=== PATIENT | female | born 2000 | race Caucasian/White ===

== ENCOUNTER 2020-03-23 11:08 | Outpatient (CLI) | payer BC, SELFPAY ==
--- NOTE | ~2020-03-23 | US_ITS ---
EXAMINATION: US breast LT complete HISTORY: Mastodynia TECHNIQUE: Complete left breast ultrasound is performed. FINDINGS: There is no suspicious cystic or solid mass in the vicinity of the reported palpable abnorm ality of concern. A 3 mm cyst in the skin at the 2:00 location near the nipple, likely a sebaceous cy st. IMPRESSION: No specific sonographic correlate is identified for the reported palpable abnormality of concern. Fur ther evaluation at this time should be based on clinical assessment. Continued follow-up physical exa mination is recommended. BI-RADS Category 2: Benign finding(s). Reviewed, dictated and finalized at location A. IMPRESSION: No specific sonographic correlate is identified for the reported palpable abnor mality of concern. Further evaluation at this time should be based on clinical assessment. Continued follow-up physical examination is recommended. BI-RADS Category 2: Benign finding(s).
== END 2020-03-23 11:09 | disposition home or self-care (01) ==
PROVIDERS: Visit Provider Nurse Practitioner
DX: O92.29 Other disorders of breast associated with pregnancy and the puerperium (principal)
CPT/HCPCS: 76641

== ENCOUNTER 2023-05-05 12:28 | Emergency (ER) | payer BC, SELFPAY ==
[2023-05-05 12:54] VITALS: BP 129/73; PULSE 75; RESP 18; TEMP 37.1; O2SAT 99
--- NOTE | 2023-05-05 13:15 | ED.EYEPROB ---
HPI - Eye Problem General Chief complaint: Eye Problems Stated complaint: Left Eye Irritation Time Seen by Provider: 05/05/23 13:00 Source: patient Mode of arrival: ambulatory Limitations: no limitations History of Present Illness HPI Narrative: Drea is a 22-year-old female patient presenting to clinic today with complaints of left eye discomfort/irritation since this morning. She reports that she was trying to pull a eye lash with a tweezer and accidentally poked herself in the eye. She reports that the eye has been painful and watering ever since and she has been rubbing it. Related Data Allergies Allergy/AdvReac Type Severity Reaction Status Date / Time Penicillins Allergy Unknown Unknown Unverified 05/05/23 13:08 Review of Systems Review of Systems: Pertinent positives per HPI. Patient denies any fever, chills, rash, headache, visual changes, dizziness, cough, runny nose, sore throat, shortness of breath, chest pain, palpitations, nausea, vomiting, diarrhea, constipation, abdominal pain, or any urinary issues. PMFSH Comments At the time of my signature, I reviewed and agree with the nursing past medical, surgical, social, and family history. There is no relevant family history pertinent to the patient complaint. Exam Narrative: General: Well-developed, well nourished, in no apparent distress Head: Normocephalic, atraumatic Eyes: Pupils equally round and reactive to light bilaterally, EOM intact, right sclera and conjunctive clear, mild irritation to the left sclera, watery discharge to the left eye with mild lid swelling, Wood's lamp exam was performed and shows no obvious corneal abrasion. No obvious foreign body visualized Ears: TMs intact and clear, ear canals clear, no drainage, grossly hearing normal. Nose: Nares patent, no discharge, no inflammation, no sinus tenderness. Mouth: Oropharynx without lesions or masses, good dentition, MMM. Neck: Supple, trachea midline, no enlargement of anterior or posterior cervical nodes, no thyroid masses or goiter palpable. Cardio: Regular rate and rhythm, s1 and s2 normal, no murmur appreciated. Resp: Clear to auscultation bilaterally anteriorly and posteriorly, no rhonchi, rales, wheezing or rubs Course Course Emergency Course: Portions of this record may have been created with voice recognition software. Level of Care: Express Care Visit Vital Signs Vital signs: Vital Signs Temperature 37.1 C 05/05/23 12:54 Pulse Rate 75 05/05/23 12:54 Respiratory Rate 18 05/05/23 12:54 Blood Pressure 129/73 05/05/23 12:54 Pulse Oximetry 99 05/05/23 12:54 Oxygen Delivery Room Air 05/05/23 12:54 Temperature 37.1 C 05/05/23 12:54 Pulse Rate 75 05/05/23 12:54 Respiratory Rate 18 05/05/23 12:54 Blood Pressure 129/73 05/05/23 12:54 Pulse Oximetry 99 05/05/23 12:54 Oxygen Delivery Room Air 05/05/23 12:54 Vital signs reviewed Procedures Other Procedure Procedure 1: Other Procedure: Topical anesthetic -2 drops of tetracaine was instilled with good anesthesia. Fluorescein stain of the left eye was performed without uptake of dye. No epithelial defect was noted. NO FB, ulcer or dendritic lesions. Upper lid was everted and no FB or lesions were noted. NO Jonny sign. Normal saline irrigation eye solution was performed and the patient tolerated the procedure well, no adverse reaction or complications. Visual acuity noted. MDM - Eye Problem MDM Narrative Medical decision making narrative: At the time of visit patient is resting comfortably on the exam table. Wood's lamp exam was performed and does not show any sign of corneal abrasion. No foreign body was visualized in the left eye. Eye wash was completed and tetracaine was placed into the left eye and this improved her pain. Patient is not wearing corrective lenses in the clinic today and states that she is legally blind without. Will send in prescription for some Tobr
--- NOTE | 2023-05-05 13:23 | PC.NURSE ---
1315 attempted visual acuity , pt states uses contacts and /or glasses. does not have either with her. very poor vision without.
--- NOTE | 2023-05-05 13:25 | PC.NURSE ---
documentation completed by nancy zepeda rn and reviewed
== END 2023-05-05 13:30 | disposition home or self-care (01) ==
PROVIDERS: Emergency Provider Nurse Practitioner Family
DX: H57.12 Ocular pain, left eye (principal)
CPT/HCPCS: 99213; A9270; G0463

== ENCOUNTER 2023-09-03 11:54 | Emergency (ER) | payer BC, SELFPAY ==
[2023-09-03 12:15] VITALS: BP 116/71; PULSE 68; RESP 16; TEMP 36.8; O2SAT 100
--- NOTE | 2023-09-03 12:49 | ED.URI ---
HPI - URI/Sore Throat General Chief Complaint: Upper Respiratory Infection Stated Complaint: Cough/Sinus Time Seen by Provider: 09/03/23 12:49 Source: patient Mode of arrival: ambulatory Limitations: no limitations History of Present Illness HPI Narrative: 23-year-old female presents with complaint of cough, sinus congestion, nasal congestion, headaches for the past 2 weeks. Afebrile. Reports taking xdhr-oed-hwcuuyd medication to treat symptoms but unsure of name. States symptoms getting progressively worse now has sore throat, worsening of sinus pressure. All systems reviewed and negative except as noted above. Related Data Allergies Allergy/AdvReac Type Severity Reaction Status Date / Time Penicillins Allergy Unknown Unknown Unverified 05/05/23 13:08 Review of Systems Review of Systems: CONSTITUTIONAL: Denies fever, chills, or sweats. EYES: Denies visual changes, redness, or discharge. ENT: reports rhinorrhea, congestion, sore throat. Denies otalgia. CARDIOVASCULAR: Denies chest pain, palpitations, or edema. RESPIRATORY: Reports cough. Denies dyspnea. GASTROINTESTINAL: Denies abdominal pain, nausea, vomiting, or diarrhea. GENITOURINARY: Denies dysuria or hematuria. SKIN: Denies rash or itching. MUSCULOSKELETAL: Denies back pain, joint pain, or myalgia. NEUROLOGIC: Denies headache, numbness, or weakness. PSYCHIATRIC: Denies anxiety or depression. All other systems reviewed are negative, except as documented in HPI. PMFSH Comments At time of signature, agree with nursing past medical, surgical, social and family history. There is no relevant family history pertinent to the presenting complaint. Exam Narrative: GENERAL: This is a well-nourished, well-developed patient, in no apparent distress. HEAD: normocephalic, atraumatic. EYES: PERRL. Sclera clear/white. Vision is grossly intact. EARS: External ears normal, auditory canals clear and without drainage, fluid bilateral TMs without erythema or perforation. Hearing grossly intact. NOSE: External nose normal with purulence nasal drainage, moderate congestion. Bilateral frontal and maxillary sinus tenderness on palpation. Erythema and swelling to bilateral nares. THROAT: Mucous membranes moist, Postnasal drainage with erythema NECK: Neck supple, non-tender without lymphadenopathy, masses or thyromegaly. CARDIOVASCULAR: Regular rate and rhythm without murmurs, gallops, or rubs. RESPIRATORY: Clear to auscultation. Breath sounds equal bilaterally. No wheezes, rales, or rhonchi. SKIN: warm, Dry, intact with no suspicious lesions or rash, good texture and turgor. NEURO: awake, alert, and oriented to person, place and time. There were no obvious focal neurologic abnormalities. EXTREMITIES: No joint tenderness, effusion, or edema noted. Course Course Level of Care: Express Care Visit Vital Signs Vital signs: Vital Signs Temperature 36.8 C 09/03/23 12:15 Pulse Rate 68 09/03/23 12:15 Respiratory Rate 16 09/03/23 12:15 Blood Pressure 116/71 09/03/23 12:15 Pulse Oximetry 100 09/03/23 12:15 Oxygen Delivery Room Air 09/03/23 12:15 Temperature 36.8 C 09/03/23 12:15 Pulse Rate 68 09/03/23 12:15 Respiratory Rate 16 09/03/23 12:15 Blood Pressure 116/71 09/03/23 12:15 Pulse Oximetry 100 09/03/23 12:15 Oxygen Delivery Room Air 09/03/23 12:15 Reviewed MDM - URI/Sore Throat MDM Narrative Medical decision making narrative: Patient is aware of diagnosis, understands and agrees to treatment plan. Anticipatory guidance given. Patient agrees to follow-up as directed and is aware of reasons to seek care at the emergency department. Portions of this record may have been created with voice recognition software will treat patient with antibiotics for bacterial sinusitis due to duration of symptoms And exam findings. Differential Diagnosis Differential diagnosis: Likely sinusitis Discharge Plan Discharge
== END 2023-09-03 13:03 | disposition home or self-care (01) ==
PROVIDERS: Emergency Provider Nurse Practitioner Family; PCP Internal Medicine
DX: J01.90 Acute sinusitis, unspecified (principal); B96.89 Other specified bacterial agents as the cause of diseases classified elsewhere
CPT/HCPCS: 99213; G0463

== ENCOUNTER 2023-10-09 14:10 | Outpatient (CLI) | payer OTHER, SELFPAY ==
--- NOTE | ~2023-10-09 | US_ITS ---
EXAMINATION: US art doppler w press LE BI DATE: 10/09/2023 15:14 INDICATION: Peripheral vascular disease TECHNIQUE: Segmental pressures and plethysmographic and Doppler waveforms of the brachial and lower e xtremity arteries were obtained. COMPARISON: None. FINDINGS: Right and left brachial artery pressures of 106 mm Hg and 113 mm Hg, respectively, are concordant (no rmal difference <= 30 mmHg). The right and left high-thigh pressure indices are 1.18 and 1.18, respec tively (normal > 1.2). The right ankle-brachial index (CHEPE) is 1.12 (normal >= 0.9-1). The right great toe-brachial index (T BI) is 0.76 (normal >= 0.6-0.8). The right lower extremity segmental pressure gradients are normal (n ormal gradients <= 20-30 mmHg between adjacent levels on the same leg or the same levels on the two l egs). Arterial waveforms are biphasic with brisk systolic upstrokes throughout the arteries of the ri ght lower limb. The left CHEPE is 1.06. The left TBI is 0.61. The left lower extremity segmental pressure gradients are normal. Arterial waveforms are triphasic at the left common femoral and superficial femoral arteries and biphasic in the more distal arteries with brisk systolic upstrokes throughout. IMPRESSION: 1. Mild aortobiiliac arterial occlusive disease with mildly decreased bilateral high thigh pressure i ndices. 2. No significant more peripheral arterial occlusive disease to bilateral lower limbs with normal neto ateral ABIs and right TBI and borderline left TBI. Reviewed, dictated and finalized at location A. [facility] [employer] IMPRESSION: 1. Mild aortobiiliac arterial occlusive disease with mildly decreased bilateral high thigh pressure indices. 2. No significant more peripheral arterial occlusive disease to bilateral lower limbs with normal bilateral ABIs and right TBI and borderline left TBI.
== END 2023-10-09 14:11 | disposition home or self-care (01) ==
PROVIDERS: Visit Provider Podiatrist Foot & Ankle Surgery
DX: I73.9 Peripheral vascular disease, unspecified (principal)
CPT/HCPCS: 93923

== ENCOUNTER 2024-10-18 07:31 | Outpatient (CLI) | payer OTHER, SELFPAY ==
--- NOTE | ~2024-10-18 | US_ITS ---
EXAMINATION: US OB transvaginal INDICATION: UNCERTIAN DATES TECHNIQUE: Sonography of the pelvis was performed by transabdominal and transvaginal techniques. COMPARISON: None. RESULT: Uterus: 8.7 x 5.1 x 7.3 cm. Anteverted. Homogenous myometrium. Intrauterine gestational sac: Single present. Yolk sac: 0.5 cm . Embryo: Single present. Frannie rump length: 0.5 cm, corresponding gestational age 6 weeks, 2 days. G estational heart rate: present 114 bpm. Subgestational hematoma: Absent . Right ovary: Not visualized. Left ovary: Not visualized. Pelvis free fluid: None. IMPRESSION: Single, live intrauterine gestation. Estimated Gestational Age: 6 weeks, 2 days by crown rump length. LICO by ultrasound 06/11/2025. Reviewed, dictated and finalized at location K. ELECTRICIAN IMPRESSION: Single, live intrauterine gestation. Estimated Gestational Age: 6 weeks, 2 days by crown rump length. LICO by ultras ound 06/11/2025.
== END 2024-10-18 07:32 | disposition home or self-care (01) ==
LOC: MICIMG 07:32
PROVIDERS: Visit Provider Obstetrics & Gynecology Gynecology
DX: Z36.87 Encounter for antenatal screening for uncertain dates (principal); Z3A.01 Less than 8 weeks gestation of pregnancy
CPT/HCPCS: 76817

== ENCOUNTER 2024-10-28 10:25 | Outpatient (CLI) | payer OTHER, SELFPAY ==
--- NOTE | ~2024-10-28 | US_ITS ---
Pelvic ultrasound. Clinical History: First trimester , vaginal bleeding Technique: Realtime transabdominal and transvaginal scanning of the pelvis was performed. Color flow Doppler and Doppler spectral analysis were performed. Findings: The uterus is anteverted, and contains an intrauterine gestation. Small subchorionic hemorr crystal measures 1.3 cm in maximum diameter. Brimson-rump length of 1.4 cm corresponds to an estimated ges tational age of 7 weeks 5 days. heart rate is 155 bpm. Neither ovary seen. No adnexal mass seen. There is no evidence of free fluid in the cul de sac. Impression: Live intrauterine gestation, with estimated gestational age of 7 weeks 5 days. heart rate is 15 5 bpm. Sonographic LICO is 06/11/2025. Small subchorionic hemorrhage, as above. Reviewed, dictated and finalized at [facility]. UTER FORWARDING SYSTEM MARKUP CLERK Impression: Live intrauterine gestation, with estimated gestational age of 7 weeks 5 days. heart rate is 155 bpm. Sonographic LICO is 06/11/2025. Small subchorionic hemorrhage, as above.
== END 2024-10-28 10:26 | disposition home or self-care (01) ==
LOC: MICIMG 10:26
PROVIDERS: PCP Obstetrics & Gynecology Gynecology; Visit Provider Obstetrics & Gynecology Gynecology
DX: O26.851 Spotting complicating pregnancy, first trimester (principal); Z3A.01 Less than 8 weeks gestation of pregnancy
CPT/HCPCS: 76801

== ENCOUNTER 2024-11-25 09:50 | Outpatient (CLI) | payer OTHER, SELFPAY ==
--- NOTE | ~2024-11-25 | US_ITS ---
EXAMINATION: US OB <= 14 weeks fetus DATE: 11/25/2024 14:22 CDT INDICATION: Follow-up subchorionic hemorrhage COMPARISON: 10/28/2024 TECHNIQUE: Real-time transabdominal obstetric ultrasound. FINDINGS: 2 Estimated date of delivery by last menstrual period is 06/11/2025 The uterus 14.5 x 8.3 x 8.2 cm. A gestational sac is identified within the uterus. Interval resolution of the subchorionic hemorrhage, seen on previous examination. A pole is identified, with a crown-rump length that measures 5.3 cm, corresponding to an approx imate gestational age of 12 weeks and 0 days. cardiac activity is identified at a rate of 161 bpm. Despite prolonged interrogation, neither ovary was visualized. Estimated date of delivery by ultrasound is 06/09/2025 IMPRESSION: Single intrauterine gestation with an approximate gestational age of 12 weeks and 0 days, with cardiac activity identified. No subchorionic hemorrhage is present. Reviewed, dictated and finalized at location A. IMPRESSION: Single intrauterine gestation with an approximate gestational age of 12 weeks a nd 0 days, with cardiac activity identified. No subchorionic hemorrhage is present.
== END 2024-11-25 09:51 | disposition home or self-care (01) ==
PROVIDERS: PCP Obstetrics & Gynecology Gynecology; Visit Provider Nurse Practitioner Women's Health
DX: O36.8910 Maternal care for other specified fetal problems, first trimester, not applicable or unspecified (principal); Z3A.12 12 weeks gestation of pregnancy
CPT/HCPCS: 76801

== ENCOUNTER 2025-01-14 15:21 | Outpatient (CLI) | payer OTHER, SELFPAY ==
--- NOTE | ~2025-01-14 | US_ITS ---
EXAMINATION: US OB /maternal detail DATE: 01/16/2025 15:53 CDT INDICATION: Anatomy scan TECHNIQUE: Real-time transabdominal obstetric ultrasound. FINDINGS: There is a single intrauterine gestation in variable presentation. The placenta is anterior and demonstrates complete placenta previa. The cervix measures 4.8 cm in length. cardiac activity and movement is noted with a heart rate of 143 beats per minute. Anatomic parameters are as follows The bladder is visualized and is unremarkable. A three-vessel cord is present. Cord insertion is clearly demonstrated to be on the midline. Bilateral kidneys are present without hydronephrosis. The anterior and posterior margins of the diaphragm are continuous. The cervical, thoracic and lumbar spines are covered in their entirety. choroid plexi are visualized, and unremarkable. Lateral ventricles are visualized measuring 6.7 and 6.8 mm, respectively. The falx is visualized. The cerebellum is visualized and is unremarkable. The cisterna magna measures 5.8 mm in anterior to posterior dimension (normal measurement is 2 to 10 mm). The nuchal fold measures 3.5 mm (greater than 6 mm is considered abnormal). Cine of the four-chamber heart is visualized and is anatomic. Both the right and left ventricular outflow tracts are identified and are unremarkable. Limited views of the arms, hands, legs and feet were performed and appear grossly unremarkable. Evaluation of the upper lip and nose confirms their continuity. The following biometric data were obtained: Biparietal diameter (BPD): 4.5 cm; head circumference (HC): 16.7 cm; abdominal circumference (AC): 13.7 cm; femur length (FL): 3 cm. These measurements are concordant. Estimated weight is 280 g +/- 42 g, which correlates with the 67th percentile when 06/08/2025 is used as estimated date of delivery. As single measurements, these parameters are each equal to the following estimated gestational ages: BPD: 19 weeks 3 days. HC: 19 weeks 3 days. AC: 19 weeks 1 day. FL: 19 weeks 2 days. estimated gestational age based solely on measurements from this exam is 19 weeks 2 days +/- 1 week 2 days. IMPRESSION: Single intrauterine gestation with an approximate gestational age of 19 weeks and 2 days. Estimated d ue date by ultrasound is 06/08/2025 Complete placenta previa. Reviewed, dictated and finalized at location A. IMPRESSION: Single intrauterine gestation with an approximate gestational age of 19 weeks a nd 2 days. Estimated due date by ultrasound is 06/08/2025 Complete placenta previa.
== END 2025-01-14 15:22 | disposition home or self-care (01) ==
PROVIDERS: PCP Obstetrics & Gynecology Gynecology; Visit Provider Obstetrics & Gynecology Gynecology
DX: Z34.92 Encounter for supervision of normal pregnancy, unspecified, second trimester (principal); Z3A.19 19 weeks gestation of pregnancy
CPT/HCPCS: 76805

== ENCOUNTER 2025-02-24 10:50 | Outpatient (CLI) | payer OTHER, SELFPAY ==
--- NOTE | ~2025-02-24 | US_ITS ---
US OB limited 02/24/2025 11:10 Indication: Follow-up previa Procedure: High-resolution Limited obstetrical ultrasound Comparison: Ultrasound dated 01/14/2025 Findings: There is a single living intrauterine in vertex presentation. heart rate 14 2 BPM. Placenta anterior measuring 3.9 cm to the cervix. Amniotic fluid is subjectively normal. Impression: 1: Low-lying anterior placenta measuring 3.9 cm to the cervix. Reviewed, dictated and finalized at location [] Impression: 1: Low-lying anterior placenta measuring 3.9 cm to the cervix.
== END 2025-02-24 10:51 | disposition home or self-care (01) ==
LOC: MICIMG 10:51
PROVIDERS: PCP Obstetrics & Gynecology Gynecology; Visit Provider Obstetrics & Gynecology Gynecology
DX: O44.00 Complete placenta previa NOS or without hemorrhage, unspecified trimester (principal); Z3A.00 Weeks of gestation of pregnancy not specified
CPT/HCPCS: 76815

== ENCOUNTER 2025-04-29 22:10 | Outpatient (RCR) | payer OTHER, SELFPAY ==
[2025-04-29 22:52] VITALS: BP 139/81; PULSE 87
== END 2025-07-28 23:59 | disposition home or self-care (01) ==
LOC: ANHOBOP 22:10
PROVIDERS: PCP Obstetrics & Gynecology Gynecology; Visit Provider Obstetrics & Gynecology Gynecology
DX: O36.8130 Decreased fetal movements, third trimester, not applicable or unspecified (principal); Z3A.34 34 weeks gestation of pregnancy
CPT/HCPCS: 59025

== ENCOUNTER 2025-05-19 16:37 | Outpatient (CLI) | payer OTHER, SELFPAY ==
--- OUTSIDE RECORDS SUMMARY | 2015-08-18 05:15 | XMS_ITS | Continuity of Care Document ---
Author Organization [facility] Address [address] [place] [address] Phone Care Team Providers Care Chemical Maker Name Role Phone Mirian Avina PA-C Unavailable Unavailable Advance Directives Directive Yes / No Effective Date File Name No Information Encounters Encounter Description Practice Location Reason(s) For Visit Diagnoses Date Provider Providers Copied on Encounter [facility], [address], [place], [address], tel:[phone] [facility] Bursitis of left shoulder 5 Fabrice Vela. [address], [place], [place], [address] . tel:[phone] Referring Provider: [address], [place], [address] . tel:[phone] Family History Family Member Type Diagnosis Age At Onset No Information Payers Payer name Insurance type Covered libertarian ID Authoriza tion(s) No Information Social History Type Description Quantity Date Captured Comments Sex Female Smoking Status No Information Vital Signs Date / Time: Height Weight BMI Pulse Rate Blood Pressure Temperature Respiratory Rate Body Surface Area Head Circumference Head Circ. Percentile Wt./Matt. Percentile BMI percentile Pulse Ox Inhaled Ox 10:21 AM 69.00 in 56.245 kg (124.00 lbs) 18.3 1 kg/m eter (2) 98.10 F Chief Complaint And Reason For Visit No Information Reason For Referral Reason For Referral No Information Plan Of Treatment Date Type Action Status Referral Ordered: RADEX WALTER COMPL MINIMUM 2 VIEWS LT ordered History Of Present Illness Encounter Date Complaint History Of Prese nt Illness No Information Functional Status Date Functional Assessmen t No Information Instructions Date Instruction Additional Infor mation No Information Assessments Type Assessment Date assessment Bursitis of left shoulder Patient Care Teams Name Effective Dates (start - stop) Status Members No Information
--- OUTSIDE RECORDS SUMMARY | 2021-06-27 04:15 | XMS_ITS | Continuity of Care Document ---
Author Organization [facility] Address [address] [place] [address] Phone Care Team Providers Care Metal Roofer Name Role Phone Leon Hong MD Unavailable Unavailable Allergies, Adverse Reactions, Alerts Substance Reaction Status Criticality amoxicillin hives Active No Information Medications Medication Instructions Dosage Effective Dates (start - stop) Status Comments Topamax 25 mg tablet TAKE 1 TABLET BY MOUTH EVERY DAY - Active Imitrex 100 mg tablet take 1 tablet by oral route once with fluids as early as possible after the onset of a migraine attack;may repeat after 2 hours - Active Sprintec (28) 0.25 mg-35 mcg tablet 1 tab by Oral route every day - Active 3 month supply Procedures Procedure Date FORM CHARGE BODY MASS INDEX DOCD SYST BP LT 130 MM HG DIAST BP < 80 MM HG IMMUN ADMIN (INC PERCUTANEOUS) SINGLE, F IRST INJ FLU VAC NO PRSV 4 MIKAYLA, 0.5mL DOSAGE PREVENTATIVE-EST: 18-39 FORM CHARGE OFFICE [id number] BODY MASS INDEX DOCD SYST BP LT 130 MM HG DIAST BP < 80 MM HG Advance Directives Directive Yes / No Effective Date File Name No Information Encounters Encounter Description Practice Location Reason(s) For Visit Diagnoses Date Provider Providers Copied on Encounter [facility], [address], [place], [place], [address] , tel: [phone] [facility] No Information [address], [place], [place], [address], [place]. tel:[phone] [facility], [address], [place], [place], [address] , tel: [phone] [facility] No Information [address], [address], [place], [place], [address], [place]. tel:[phone] [facility], [address], [place], [place], [address] , tel: [phone] [facility] No Information 1 Hal [address], [address], [place], [place], [address], [place]. tel:[phone] Referring Provider: [address], [place], [address] . tel:[phone] PREVENTATIVE -EST: 18-39 [facility], [address], [place], [place], [address] , tel: [phone] [facility] well visit (chief complaint) Encounter for general adult medical examination without abnormal findingsMigraine without status migrainosus, not intractable, unspecified migraine typeOral contraceptive use 0 Hal Quintero. [address], [address], [place], [place], [address], [place]. tel:[phone] Referring Provider: [address], [place], [address] . tel:[phone] [facility], [address], [place], [place], [address] , tel: [phone] [facility] No Information 0 Hal Quintero. [address], [address], [place], [place], [address], [place]. tel:[phone] [facility], [address], [place], [place], [address] , tel: [phone] [facility] No Information 0 Hal Quintero. [address], [address], [place], [place], [address], [place]. tel:[phone] Referring Provider: [address], [place], [address] . tel:[phone] OFFICE [facility], [address], [place], [place], [address] , tel: [phone] [facility] acute visit (chief complaint) Migraine without status migrainosus, not intractable, unspecified migraine type 0 Hal Quintero[address], [address], [place], [place], [address], . tel:[phone] Referring Provider: Leon Crowe, [address], [place], [address] . tel:[phone] [facility], [address], [place], [place], [address] , tel:[phone] [facility] Encounter for routine child health examination without abnormal findings 6 Hal [address], [address], [place], [place], [address], [place]. tel:[phone] Referring Provider: [address], [place], [address] . tel:[phone] [facility], [address], [place], [place], [address] , tel:[phone] [facility] No Information 6 [address], [address], [place], [place], [address], . tel:[phone] [facility], [address], [place], [place], [address] , tel: [phone] [facility] Encounter for screening for other disorderDepression , unspecified depression typeEncounter for surveillance of contraceptive pills 6 Hal Qu[address], [address], [place], [place], [address], . tel:[phone] Referring Provider: Leon Crowe, [address], [place], [address] . tel:[phone] [facility], [address], [place], [place], [address] , tel: [phone] [facility] ROUTINE CHILD HEALTH EXAMMigraineOral contraceptive use 5 Hal Quintero. [address], [address], [place], [place], [address], . tel:[phone] Referring Provider: Leon Crowe, [address], [place], [address] . tel:[phone] [facility], [address], [place], [place], [address] , tel: [phone] [facility] Urinary tract infection 5 Hal Quintero[address], [address], [place], [place], [address], . tel:[phone] Referring Provider: [address], [place], [address] . tel:[phone] [facility], [address], [place], [place], [address] , tel: [phone] [facility] Acute pharyngitisMigrain eOral contraceptive use 5 Hal Qu[address], [address], [place], [place], [address], . tel:[phone] Referring Provider: [address], [place], [address] . tel:[phone] [facility], [address], [place], [place], [address] , tel: [phone] [facility] MigraineStrep pharyngitisInfluen za Vaccine 4 Hal [address], [address], [place], [place], [address], . tel:[phone] Referring Provider: [address], [place], [address] . tel:[phone] [facility], [address], [place], [place], [address] , tel: [phone] [facility] ROUTINE CHILD HEALTH EXAMOral contraceptive useVasovagal syncopeNEED FOR PROPHYLACTIC VACCINATION AND INOCULATION, OTHER VIRAL DISEASESScreening for depression 4 Hal [address], [address], [place], [place], [address], . tel:[phone] Referring Provider: [address], [place], [address] . tel:[phone] [facility], [address], [place], [place], [address] , tel: [phone] [facility] Routine or child health checkRoutine or child health checkRoutine or child health check 3 Pankaj Dunbar. [address] [place] [address] [place] [address], [address], . tel:[phone] Referring Provider: Manjinder Lira, [address] [place] [address] [place] [address], [address] . tel:[phone] Family History Family Member Type Diagnosis Age At Onset Father Problem (finding) ankylosing spondylitis Father Problem (finding) hypertension Immunizations Vaccine Date Status Comments Fluzone Quad, preservative free, split virus, 0.5mL dosage administered Source: New Immunization Record meningococcal B, OMV, 2 dose schedule administered Source: New Immuniza tion Record Influenza, injectable, quadrivalent, preservative free, 3 yrs or older administered Source: New Immuniz ation Record meningococcal B, OMV, 2 dose schedule administered Source: New Immuniza tion Record HPV (quadrivalent) administered Source: N ew Immunization Record meningococcal MCV4P administered Source: New Immunization Record Influenza, live, intranasal, quadrivalent administered Source: New Immuniza tion Record HPV (quadrivalent) administered Source: N ew Immunization Record HPV (quadrivalent) administered Source: N ew Immunization Record hep A (ped/adol, 2 dose) administered Sara rce: New Immunization Record MCV4 administered Source: New Imm unization Record varicella administered Source: New Imm unization Record hep A (ped/adol, 2 dose) administered Sara rce: New Immunization Record Tdap administered Source: New Imm unization Record MMR administered Source: New Imm unization Record polio, inactivated (IPV) administered Sara rce: New Immunization Record DTaP administered Source: New Imm unization Record varicella administered Source: New Imm unization Record hep B (ped/adol, 3 dose) administered Sara rce: New Immunization Record HIB administered Source: New Imm unization Record MMR administered Source: New Imm unization Record polio, inactivated (IPV) administered Sara rce: New Immunization Record DTaP administered Source: New Imm unization Record HIB administered Source: New Imm unization Record DTaP administered Source: New Imm unization Record HIB administered Source: New Imm unization Record polio, inactivated (IPV) administered Sara rce: New Immunization Record DTaP administered Source: New Imm unization Record hep B (ped/adol, 3 dose) administered Sara rce: New Immunization Record HIB administered Source: New Imm unization Record polio, inactivated (IPV) administered Sara rce: New Immunization Record DTaP administered Source: New Imm unization Record hep B (ped/adol, 3 dose) administered Sara rce: New Immunization Record Payers Payer name Insurance type Covered alliance party ID Authoriza tion(s) BCBS ACCESS CHOICE BL [id number] BCBS INACTIVE OUT OF STATE BL [id number] CMR GHP ASO CI [id number] CMR G[employer] ASO CI [id number] CMR [employer]HP ASO CI [id number] [employer]HP [employer] EM[employer]EE CI [id number] Social History Type Description Quantity Date Captured Comments Sex Female Smoking Status No Information Chief Complaint And Reason For Visit No Information Reason For Referral Reason For Referral No Information Plan Of Treatment Date Type Action Status Future Order: Lab Order Neisseri a Gonorrhoeae (GC), DNA, SDA, OTV ([id number]), Sent on: Sent Future Order: Lab Order CHLAMYDI A, RNA, TMA (Aptima) ([id number]), Sent on: Sent History Of Present Illness Encounter Date Complaint History Of Prese nt Illness well visit well visit (comments) doing well on tpamax on oral contraception for menstrual cycle abstaining from sex does not want screen for sti does not want to switch to LARC acute visit (comments) Here with mom. Being disabled at work for migraines. She loses her vision. Often this is the first sign of a headache is when she started seeing problems with her vision. They are both unsure of which tryptophan was paid for in the past. I was able to re-create her past history back in 2014 when we started her on amitriptyline 25 mg prophylaxis, this was increased to 50, then she saw neurology who put her on Topamax. They are unsure whether it helped her or how long she took it if it all. No vomiting with headaches. These are not waking her up at night. acute visit Functional Status Date Functional Assessmen t No Information Instructions Date Instruction Additional Infor agusto if you want to mtz e to long acting reversible contraception (LARC) such as the Nexplanon or an IUD, let me know as I can give you the Nexplanonalso if you would like to have a menstrual cycle ever 84 days insted of 38, let me know as we can switch your oral contraceptive to Seasonique Related to Oral contraceptive use call if trouble with migraine Re lated to Migraine without status migrainosus, not intractable, unspecified migraine type check up in May 2021 Relat ed to Encounter for general adult medical examination without abnormal findings Well Child 12-21 Years try Maxalt or any ot her tryptan at onset of headache if this not helping or more than one a month that is disabling call schedule for check upcall if any concerns Related to Migraine without status migrainosus, not intractable, unspecified migraine type Assessments Type Assessment Date No Information Patient Care Teams Name Effective Dates (start - stop) Status Members No Information
--- OUTSIDE RECORDS SUMMARY | 2025-05-19 16:42 | XMS_ITS ---
Author Organization [facility] (ClinicalSummary Clone) Address Unknown Care Team Providers Care Diabetes Manager Name Role Phone Unavailable Primary Care Physician Unavailab le Results * [UNITY] CARRIER SCREEN Performed by: [employer] Component Value Range Date Sickle Cell Disease/Beta-Thalassemia/Hemo globinopathies carrier screen NEGATIVE 12/05/2024 09:57 pm UTC Alpha-Thalassemia carrier screen NEGATIVE 12/05/2024 09:57 pm UTC Cystic Fibrosis carrier screen NEGATIVE 12/05/2024 09:57 pm UTC Spinal Muscular Atrophy carrier screen NEGATIVE 2 SMN1 copies, SNP not present 12/05/2024 09:57 pm UTC For detailed report, see PDF See PDF 12/05/2024 09:57 pm UTC 12/05/2024 09:5 7 pm UT Social History Observation Value Start Date End Date
--- OUTSIDE RECORDS SUMMARY | 2025-05-19 16:42 | XMS_ITS ---
Author Organization [facility] (ClinicalSummary Clone) Address Unknown Care Team Providers Care Boomboat Operator Name Role Phone Unavailable Primary Care Physician Unavailab le Results * [UNITY] ANEUPLOIDY NIPT Performed by: Vusay Component Value Range Date Fraction 21.6% 12/01/2024 09 :47 pm UTC Sex Chromosome Aneuploidy NOT DETECTED 09:47 pm UTC Monosomy X LOW RISK <1 in 10,000 2024 09:47 pm UTC Trisomy 13 LOW RISK <1 in 10,000 2024 09:47 pm UTC Trisomy 18 LOW RISK <1 in 10,000 2024 09:47 pm UTC Trisomy 21 LOW RISK <1 in 10,000 2024 09:47 pm UTC Sex FEMALE 12/01/2024 09:4 7 pm UTC Gestation SIN 12/02/19 09:47 pm UTC For detailed report, see PDF See PDF 12/01/2024 09:47 pm UTC 12/01/2024 09:4 7 pm UTC Social History Observation Value Start Date End Date
--- OUTSIDE RECORDS SUMMARY | 2025-05-19 16:42 | XMS_ITS | Clinical Summary ---
Author Organization [facility] Address [address] [place] [address] Care Team Providers Care Telecommunication Systems Designer Name Role Phone Kyleigh Hinton MD Unavailable Albina Lopez MD Primary Care Provider Source Comments [facility],non-owned Affiliates and Associated Physician Practices is amultiple site organization consisting of ambulatory clinics and hospital sitesin [place], [place], [place] and [place]. This disclosure is being madepursuant to the Care Everywhere program and may not contain all information available regarding this patient. Last updated 18.[facility] Allergies Active Allergy Reactions Criticality Noted Date Comments Augmentin Itching,Rash Medium 07/19/2021 Medications * Be aware that medications may not be up to date on this document. Alwaysverify current medications with the patient. valACYclovir (Valtrex) 1 GM tabletIndication s:Encounter for medical examination to establish care Take 1 (one) tablet by mouth 2 times daily 08/30/2023 Active Vit-Fe Fumarate-FA ( vitamin) 28-0.8 MG tablet Take 1 (one) tablet by mouth once daily Active Active Problems Problem Noted Date Diagnosed Date Anorexia nervosa 07/18/2022 10/04/2023 Psoriatic arthritis 06/15/2022 Pap smear abnormality of cervix 04/27/2021 10/04/2023 Subacute and chronic vaginitis 04/27/2021 Overview (11/03/2024): Subacute and chronic vaginitis; Progress: Stable Added By: Ioana Mckee Add to Current Problems: YES ProblemStatus: Current Vaginolabial hernia 02/21/2021 10/04/2023 Migraine headache Estimated Date of Delivery Comme nts Yes 06/11/2025 Resolved Problems Problem Noted Date Diagnosed Date Resolved Date Screening for malignant neoplasm of cervix 04/27/2021 10/04/2023 11/21/2024 Syphilis 04/27/2021 10/04/2023 11/21/2024 Worsening headaches 03/03/2015 10/04/2023 11/22/19 25 Immunizations Immunization Administration Dates Next Due COVID PFIZER 12+YR 30MCG/0.3mL 12/01/2021 Covid Pfizer primary monoval ent 12+ yr 0.3mL Purple cap 02/01/2021,01/11/2021 HEP A PEDS 2 DOSE 07/21/2009 INFLUENZA VACCINE, QUADR. (F LUZONE; FLULAVAL; FLUARIX; AFLURIA QUADRIVALENT; 6MO+), 0.5 ML (IIV4) 10/04/2023,06/15/2022,07/19/2021 TDAP, HISTORIC VACCINE 07/21/2009 VARICELLA 07/21/2009 Family History Medical History Relation Name Comments Anxiety Disorder Brother Arthritis - Rheumatoid Father Hypertension Father None Known Maternal Grandfather Cancer - Lung Maternal Grandmother None Known Mother Diabetes - Type 2 Paternal Grandfather Arthritis - Rheumatoid Paternal Grandmother CAD (Coronary Artery Disease) Paternal Grandmother Arthritis - Rheumatoid Paternal Uncle 1 CAD (Coronary Artery Disease) Paternal Uncle 2 Anxiety Disorder Sister Cancer - Breast Neg Hx Cancer - Colon Neg Hx Relation Name Status Comments Brother Alive 2 brothers Father Alive Maternal Grandfather Maternal Grandmother Mother Alive Paternal Grandfather Paternal Grandmother Paternal Uncle 1 Paternal Uncle 2 Sister Alive Social History Tobacco Use Types Packs/Day Years Used Date Smoking Tobacco: Never Smokeless Tobacco: Never Tobacco Cessation:Counseling Given: Not Answered Alcohol Use Standard Drinks/Week Comments Not Currently 0 (1 standard drink = 0.6 oz pur e alcohol) PHQ-2 Answer Date Recorded Patient Health Questionnaire-2 Score 0 11/21/2024 Education Answer Date Recorded What is the highest level of school you have completed or the highest degree you have received? Associate degree: academic program 10/04/2023 Estimated Date of Delivery Comme nts Yes 06/11/2025 Sex and Gender Information Value Date Recorded Sex Assigned at Female 11/20/2024 12:43 PM DESIZING MACHINE OFFBEARER Legal Sex Female 11:07 AM CDT Gender Identity Female 11/20/2024 12:43 PM DESIZING MACHINE OFFBEARER Sexual Orientation Straight 11/20/2024 12 :43 PM DESIZING MACHINE OFFBEARER Occupation Industry Job Start Date Job End Date [employer]IC Not on file Not on file Not on file [employer] Not on file Not on file Not on file Last Filed Vital Signs Vital Sign Reading Time Taken Comments Blood Pressure 128/78 11/21/2024 9:19 AM DESIZING MACHINE OFFBEARER Pulse 98 11/21/2024 9:19 AM DESIZING MACHINE OFFBEARER Temperature 37.1 C (98.8 F) 11/21/2024 9:19 AM DESIZING MACHINE OFFBEARER Respiratory Rate 22 04/25/2024 8:45 AM CDT Oxygen Saturation 100% 11/21/2024 9:19 AM DESIZING MACHINE OFFBEARER Inhaled Oxygen Concentration - - Weight 68.6 kg (151 lb 3.2 oz) 11/21/2024 9:19 A M DESIZING MACHINE OFFBEARER Height 177.8 cm (5' 10) 11/21/2024 9:19 AM DESIZING MACHINE OFFBEARER Body Mass Index 21.69 11/21/2024 9:19 AM DESIZING MACHINE OFFBEARER Plan of Treatment Upcoming Encounters Date Type Department Care Team (Late st Contact Info) Description 11/27/2025 9:20 AM CDT Office Visit [facility] - Family Medicine [address] [place] [phone] Kristen Cunha, RACING CAR DRIVER-TUGBOAT DISPATCHER [address] [facility] [address] [place] [phone] Health Maintenance Due Date Last Done Comments HIV SCREENING 2013 HPV VACCINE (1 - 3-dose series) 2013 HEPATITIS B VACCINE (1 of 3 - 19+ 3-dose series) 2017 DTAP/TDAP/TD VACCINES (2 - Td or Tdap) 07/21/2019 07/21/2009 COVID-19 VACCINE ( season) 2024 12/01/2021, 02/01/2021, 01/11/2021 PAP SMEAR 01/06/2025 01/06/2022 OB-ONE HOUR GLUCOSE 03/05/2025 OB-TDAP CURRENT 03/12/2025 07/21/2009 OB-RHOGAM INJECTION 03/19/2025 OB-GROUP B STREP SCREEN 05/07/2025 INFLUENZA VACCINE (#1) 2025 , 06/15/2022, 07/19/2021 Respiratory Syncytial Virus (RSV) Vaccine Pt: or over 60 yrs (1 - Risk 1-dose series) 05/18/2025 ZOSTER VACCINE (1 of 2) 2048 HEPATITIS C SCREENING Completed 07/20/2021 DEPRESSION SCREENING Completed 11/21/2024, 10/04/2023, 11/21/2022, Additional history exists HIB VACCINE Aged Out No longer eligi ble based on patient's age to complete this topic MENINGOCOCCAL (Group B) VACCINE SHARED DECISION-MAKING Aged Out No longer eligible based on patient's age to complete this topic MENINGOCOCCAL GROUPS A/C/Y/W VACCINE Aged Out No longer eligible based on patient's age to complete this topic PNEUMOCOCCAL VACCINE Aged Out No long er eligible based on patient's age to complete this topic Procedures Procedure Name Priority Date/Time Associated Diagnosis Comments PAP SMEAR REPORT ORDER 01/06/2022 HEPATITIS SCREEN ACUTE Routine 07/20/2021 1:36 PM CDT Polyarthralgia Vitamin D deficiency Elevated C-reactive protein (CRP) from Last 3 Months or Most Recently Relevant to Health Maintenance Results * PAP SMEAR REPORT ORDER (01/06/2022) 01/06/2022 Narrative 01/06/2022 Ordered by an unspecified provider. us Scanned Document LAB - PATHOLOGY/CYTOLOGY ORDERA BLES Final Result * HEPATITIS SCREEN ACUTE (07/20/2021 1:36 PM CDT) Hepatitis A Virus Antibody IgM Negative Negative [facility] ACCOUNT BILL Hepatitis B Virus Surface Antigen Negative Negative [facility] ACCOUNT BILL Hepatitis B Core Virus Antibody IgM Negative Negative [facility] ACCOUNT BILL Hepatitis C Antibody <0.1 0.0 - 0.9 s/co ratio [facility] ACCOUNT BILL Comment: Negative: < 0.8 Indeterminate: 0.8 - 0.9 Positive: > 0.9 . The CDC recommends that a positive HCV antibody result be followed up with a HCV Nucleic Acid Amplification test ([id number]). Blood BLOOD SPECIMEN / Unknown 07/20/2021 1:36 PM CDT 07/20/2021 Narrative Resulting Agency Comment Lab Testing performed at: [facility] [place] [address] [facility] [id number] us Marisel Cash MD LAB - CHEMISTRY ORDERABLES Radha velez Result [facility] ACCOUNT BILL [address] [place] [address] from Last 3 Months or Most Recently Relevant to Health Maintenance Insurance [employer] Care Teams Telecommunication Systems Designer Relationship Specialty Start Date End Date Albina Lopez MD [address] [place] [id number] PCP - General Internal Medicine 05/01/24 Kyleigh Hinton MD [address] [place], [place] [phone] Obstetrics and Gynecology 06/15/22
[2025-05-19 17:16] VITALS: BP 135/91; PULSE 122
[2025-05-19 17:28] LABS: Hematocrit 32.6 % (37.0-47.0); Hemoglobin 10.7 g/dL (12.0-15.0); Immature Granulocyte Percent A 3.9 % (0-0.5); Lymphocytes Absolute Auto 2.16 K/mm3 (0.9-3.2); Mean Corpuscular HGB Conc 32.8 g/dl (32-36); Mean Corpuscular Hemoglobin 31.4 pg (26-34); Mean Corpuscular Volume 95.6 fl (80-100); Nucleated Red Blood Cells Absolute Auto 0.000 K/mm3 (0.0-0.012); Nucleated Red Blood Cells Perc 0.0 % (0.0-0.2); Platelet Count Result 298 k/mm3 (150-375); Red Blood Count 3.41 M/mm3 (4.2-5.4); White Blood Count 15.0 K/mm3 (4.5-10.0)
[2025-05-19 17:30] VITALS: BP 135/90; PULSE 129
[2025-05-19 17:32] LABS: Total Protein Urine Random 15 mg/dL; Ur Ttl Prot Creatinine Ratio 0.50 mg/mg (0-0.20)
[2025-05-19 17:36] LABS: Alanine Aminotransferase 16 U/L (6-35); Albumin Level 3.7 g/dL (3.5-5.1); Alkaline Phosphatase 139 U/L (38-126); Anion Gap 8 mmol/L (4-12); Aspartate Amino Transferase 30 U/L (14-36); Bilirubin,Total 0.3 mg/dL (0.2-1.3); Blood Urea Nitrogen 8 mg/dL (7-17); Calcium 9.1 mg/dL (8.4-10.2); Carbon Dioxide 22 mmol/L (22-30); Chloride 104 mmol/L (98-107); Estimated Glomerular Filt Rate > 60; Glucose 89 mg/dL (65-110); Potassium 3.6 mmol/L (3.4-5.0); Sodium 134 mmol/L (137-145); Total Protein 7.5 g/dL (6.3-8.2); Uric Acid 4.8 mg/dL (2.5-7.5)
[2025-05-19 17:41] LABS: Add Urine Microscopic? YES; Appearance Urine Clear (Clear); Glucose Urine UA Negative (Negative); Leukocyte Esterase Ur Trace LEU/UL (Negative); Need Manual Microscopic Reviewed; Nitrate Urine Negative (Negative); Non Pathogenic Casts 0-2; Specific Grav Ur 1.004 (1.001-1.035)
[2025-05-19 17:45] VITALS: BP 134/95; PULSE 135
--- NOTE | 2025-05-19 18:07 | PC.NURSE ---
Dr Hinton updated on lab results and BPs. Orders for 24 hour urine and light duty.
[2025-05-19 18:17] VITALS: BMI 28.1
== END 2025-05-19 18:17 | disposition home or self-care (01) ==
LOC: ANHOBOP 16:40 → ANHLDR 16:41
PROVIDERS: PCP Nurse Practitioner Family; Visit Provider Obstetrics & Gynecology Gynecology
DX: O13.9 Gestational [pregnancy-induced] hypertension without significant proteinuria, unspecified trimester (principal); Z3A.00 Weeks of gestation of pregnancy not specified
CPT/HCPCS: 36415; 59025; 80053; 81001; 82570; 84156; 84550; 85025; 99199

== ENCOUNTER 2025-05-20 18:34 | Outpatient (NON) | payer OTHER, SELFPAY ==
[2025-05-20 19:11] VITALS: BMI 28.1
[2025-05-20 19:43] LABS: Total Volume 24 Hour Urine 2800 ml
[2025-05-20 19:54] LABS: Creatinine Clearance Urine 121.4 ml/min (75-125); Serum Creat 0.70; Total Protein Urine Random 16 mg/dL
[2025-05-20 19:57] LABS: Specific Gravity Ur < 1.010
[2025-05-20 19:58] LABS: Total Protein Urine 24 Hr 448 mg/24hr (28-141)
== END 2025-05-20 18:35 | disposition home or self-care (01) ==
LOC: ANHOBOP 19:08
PROVIDERS: PCP Nurse Practitioner Family; Visit Provider Obstetrics & Gynecology Gynecology
DX: Z34.90 Encounter for supervision of normal pregnancy, unspecified, unspecified trimester (principal); Z3A.00 Weeks of gestation of pregnancy not specified
CPT/HCPCS: 81050; 82575; 84156

== ENCOUNTER 2025-05-21 16:04 | Inpatient (IN) | payer OTHER, SELFPAY ==
--- OUTSIDE RECORDS SUMMARY | 2015-08-18 05:15 | XMS_ITS | Continuity of Care Document ---
Author Organization [facility] Address [address] [place] [address] Phone Care Team Providers Care Associate Professor Of Theology Name Role Phone Mirian Avina PA-C Unavailable Unavailable Advance Directives Directive Yes / No Effective Date File Name No Information Encounters Encounter Description Practice Location Reason(s) For Visit Diagnoses Date Provider Providers Copied on Encounter [facility], [address], [place], [address], tel:[phone] [facility] Bursitis of left shoulder 5 Fabrice Vela. [address], [place], [place], [address] . tel:[phone] Referring Provider: [address], [place], [address] . tel:[phone] Family History Family Member Type Diagnosis Age At Onset No Information Payers Payer name Insurance type Covered republican ID Authoriza tion(s) No Information Social History [...]
--- OUTSIDE RECORDS SUMMARY | 2015-08-18 05:15 | XMS_ITS | Continuity of Care Document ---
Author Organization [facility] Address [address] [place] [address] Phone Care Team Providers Care Spinner Tender Name Role Phone Mirian Avina PA-C Unavailable Unavailable Advance Directives Directive Yes / No Effective Date File Name No Information Encounters Encounter Description Practice Location Reason(s) For Visit Diagnoses Date Provider Providers Copied on Encounter [facility], [address], [place], [address], tel:[phone] [facility] Bursitis of left shoulder 5 Fabrice Vela. [address], [place], [place], [address] . tel:[phone] Referring Provider: [address], [place], [address] . tel:[phone] Family History Family Member Type Diagnosis Age [...]
--- OUTSIDE RECORDS SUMMARY | 2021-06-27 04:15 | XMS_ITS | Continuity of Care Document ---
Author Organization [facility] Address [address] [place] [address] Phone Care Team Providers Care Platform Software Engineer Name Role Phone Leon Hong MD Unavailable [...] possible after the onset of a migraine attack;january repeat after 2 hours - Active Sprintec [...] 0.5mL DOSAGE PREVENTATIVE-EST: 18-39 FORM CHARGE OFFICE [id number] BODY MASS INDEX DOCD SYST BP LT 130 MM HG DIAST BP < 80 MM HG Advance Directives Directive Yes / No Effective Date File Name No Information Encounters Encounter Description Practice Location Reason(s) For Visit Diagnoses Date Provider Providers Copied on Encounter [facility], [address], [place], [place], [address] , tel: [phone] [facility] No Information [address], [address], [place], [place], [address], [place]. tel:[phone] [facility], [address], [place], [place], [address] , tel: [phone] [facility] No Information [address], [address], [place], [place], [address], [place]. tel:[phone] [facility], [address], [place], [place], [address] , tel: [phone] [facility] No Information [address], [address], [place], [place], [address], [place]. tel:[phone] Referring Provider: [address], [place], [address] . tel:[phone] PREVENTATIVE -EST: 18-39 [facility], [address], [place], [place], [address] , tel: [phone] [facility] well visit (chief complaint) Encounter for general adult medical examination without abnormal findingsMigraine without status migrainosus, not intractable, unspecified migraine typeOral contraceptive use 0 [address], [address], [place], [place], [address], [place]. tel:[phone] Referring Provider: [address], [place], [address] . tel:[phone] [facility], [address], [place], [address] , tel: [phone] [facility] No Information 0 [address], [address], [place], [place], [address], [place]. tel:[phone] [facility], [address], [place], [place], [address] , tel: [phone] [facility] No Information 0 [address], [address], [place], [place], [address], [place]. tel:[phone] Referring Provider: [address], [place], [address] . tel:[phone] OFFICE [id number] [facility], [address], [place], [place], [address] , tel: [phone] [facility] acute visit (chief complaint) Migraine without status migrainosus, not intractable, unspecified migraine type 0 [address], [address], [place], [place], [address], . tel:[phone] Referring Provider: Leon Crowe, [address], [place], [address] . tel:[phone] [facility], [address], [place], [place], [address] , tel:[phone] [facility] Encounter for routine child health examination without abnormal findings [address], [address], [place], [place], [address], [place]. tel:[phone] Referring Provider: [address], [place], [address] . tel:[phone] [facility], [address], [place], [place], [address] , tel:[phone] [facility] No Information [address], [address], [place], [place], [address], . tel:[phone] [facility], [address], [place], [place], [address] , tel: [phone] [facility] Encounter for screening for other disorderDepression , unspecified depression typeEncounter for surveillance of contraceptive pills 6 [address], [address], [place], [place], [address], . tel:[phone] Referring Provider: Leon Crowe, [address], [place], [address] . tel:[phone] [facility], [address], [place], [place], [address] , tel: [phone] [facility] ROUTINE CHILD HEALTH EXAMMigraineOral contraceptive use 5 [address], [address], [place], [place], [address], . tel:[phone] Referring Provider: Leon Crowe, [address], [place], [address] . tel:[phone] [facility], [address], [place], [place], [address] , tel: [phone] [facility] Urinary tract infection [address], [address], [place], [place], [address], . tel:[phone] Referring Provider: [address], [place], [address] . tel:[phone] [facility], [address], [place], [place], [address] , tel: [phone] [facility] Acute pharyngitisMigrain eOral contraceptive use [address], [address], [place], [place], [address], . tel:[phone] Referring Provider: [address], [place], [address] . tel:[phone] [facility], [address], [place], [place], [address] , tel: [phone] [facility] MigraineStrep pharyngitisInfluen za Vaccine 4 [address], [address], [place], [place], [address], . tel:[phone] Referring Provider: [address], [place], [address] . tel:[phone] [facility], [address], [place], [place], [address] , tel: [phone] [facility] ROUTINE CHILD HEALTH EXAMOral contraceptive useVasovagal syncopeNEED FOR PROPHYLACTIC VACCINATION AND INOCULATION, OTHER VIRAL DISEASESScreening for depression 4 [address], [address], [place], [place], [address], . tel:[phone] Referring Provider: [address], [place], [address] . tel:[phone] [facility], [address], [place], [place], [address] , tel: [phone] [facility] Routine or child health checkRoutine or child health checkRoutine or child health check 3 Pankaj Dunbar. [address] [place] [address] [place] [address], [address], . tel:[phone] Referring Provider: Manjinder Lira, [address] [place] [address] [place] [address], [address] . tel:[phone] Family History Family Member Type Diagnosis Age [...] ID Authoriza tion(s) BCBS ACCESS CHOICE BL [id number] BCBS INACTIVE OUT OF STATE BL [id number] CMR GHP ASO CI [id number] CMR GHP ASO CI [id number] CMR GHP ASO CI [id number] GHP [employer] EMPLOYEE CI [id number] Social History Type Description Quantity Date Captured Comments Sex Female Smoking Status No Information Chief Complaint And Reason For Visit No Information Reason For Referral Reason For Referral No Information Plan Of Treatment Date Type Action Status Future Order: Lab Order Neisseri a Gonorrhoeae (GC), DNA, SDA, OTV ([id number]), Sent on: Sent Future Order: Lab Order CHLAMYDI A, RNA, TMA (Aptima) ([id number]), Sent on: Sent History Of Present Illness [...] to Seasonique Related to Oral contraceptive use check up in May 2021 Relat ed to Encounter for general adult medical examination without abnormal findings call if trouble with migraine Re lated to Migraine without status migrainosus, not intractable, unspecified migraine type Well Child 12-21 Years try Maxalt or [...]
--- OUTSIDE RECORDS SUMMARY | 2021-06-27 04:15 | XMS_ITS | Continuity of Care Document ---
Author Organization [facility] Address [address] [place] [address] Phone Care Team Providers Care Mail Teller Name Role Phone Leon Hong MD Unavailable [...] 0.5mL DOSAGE PREVENTATIVE-EST: 18-39 FORM CHARGE OFFICE [id number] BODY MASS INDEX DOCD SYST BP LT 130 MM HG DIAST BP < 80 MM HG Advance Directives Directive Yes / No Effective Date File Name No Information Encounters Encounter Description Practice Location Reason(s) For Visit Diagnoses Date Provider Providers Copied on Encounter [facility], [address], [place], [place], [address] , tel: [phone] [facility] No Information [address], [address], [place], [place], [address], [place]. [phone] [facility], [address], [place], [place], [address] , tel: [phone] [facility] No Information [address], [address], [place], [place], [address], [place]. [phone] [facility], [address], [place], [place], [address] , tel: [phone] [facility] No Information [address], [address], [place], [place], [address], [place]. tel:[phone] Referring Provider: [address], [place], [address] . tel:[phone] PREVENTATIVE -EST: 18-39 [facility], [address], [place], [place], [address] , tel: [phone] [facility] well visit (chief complaint) Encounter for general adult medical examination without abnormal findingsMigraine without status migrainosus, not intractable, unspecified migraine typeOral contraceptive use 0 [address], [place], [place], [address], [place]. tel:[phone] Referring Provider: [address], [place], [address] . [phone] [facility], [address], [place], [place], [address] , tel: [phone] [facility] No Information 0 [address], [address], [place], [place], [address], [place]. tel:[phone] [facility], [address], [place], [place], [address] , tel: [phone] [facility] No Information 0 [address], [address], [place], [place], [address], [place]. tel:[phone] Referring Provider: [address], [place], [address] . tel:[phone] OFFICE [id number] [facility], [address], [place], [place], [address] , tel: [phone] [facility] acute visit (chief complaint) Migraine without status migrainosus, not intractable, unspecified migraine type 0 [address], [place], [place], [address], . tel:[phone] Referring Provider: Leon Crowe, [address], [place], [address] . tel:[phone] [facility], [address], [place], [place], [address] , [phone] [facility] Encounter for routine child health examination without abnormal findings 6 [address], [address], [place], [place], [address], [place]. tel:[phone] Referring Provider: [address], [place], [address] . tel:[phone] [facility], [address], [place], [place], [address] , [phone] [facility] No Information [address], [address], [place], [place], [address], . tel:[phone] [facility], [address], [place], [place], [address] , tel: [phone] [facility] Encounter for screening for other disorderDepression , unspecified depression typeEncounter for surveillance of contraceptive pills 6 [address], [place], [place], [address], . tel:[phone] Referring Provider: Leon Crowe, [address], [place], [address] . [phone] [facility], [address], [place], [place], [address] , tel: [phone] [facility] ROUTINE CHILD HEALTH EXAMMigraineOral contraceptive use [address], [address], [place], [place], [address], . tel:[phone] Referring Provider: Leon Crowe, [address], [place], [address] . [phone] [facility], [address], [place], [place], [address] , tel: [phone] [facility] Urinary tract infection [address], [place], [place], [address], . tel:[phone] Referring Provider: [address], [place], [address] . tel:[phone] [facility], [address], [place], [place], [address] , tel: [phone] [facility] Acute pharyngitisMigrain eOral contraceptive use [address], [address], [place], [place], [address], . tel:[phone] Referring Provider: [address], [place], [address] . tel:[phone] [facility], [address], [place], [place], [address] , tel: [phone] [facility] MigraineStrep pharyngitisInfluen za Vaccine [address], [place], [place], [address], . tel:[phone] Referring Provider: [address], [place], [address] . tel:[phone] [facility], [address], [place], [place], [address] , tel: [phone] [facility] ROUTINE CHILD HEALTH EXAMOral contraceptive useVasovagal syncopeNEED FOR PROPHYLACTIC VACCINATION AND INOCULATION, OTHER VIRAL DISEASESScreening for depression 4 [address], [address], [place], [place], [address], . tel:[phone] Referring Provider: [address], [place], [address] . [phone] [facility], [address], [place], [place], [address] , tel: [phone] [facility] Routine or child health checkRoutine or child health checkRoutine or child health check 3 Pankaj Dunbar. [address] [place] [address] [place] [address], [address], . tel:[phone] Referring Provider: Manjinder Lira, [address] [place] [address] [place] [address], [address] . tel:[phone] Family History Family Member Type Diagnosis Age [...] Record Payers Payer name Insurance type Covered republican ID Authoriza tion(s) BCBS ACCESS CHOICE BL [id number] BCBS INACTIVE OUT OF STATE BL [id number] CMR GHP ASO CI [id number] CMR GHP ASO CI [id number] CMR GHP ASO CI [id number] GHP [employer] CI [id number] Social History Type Description Quantity Date Captured Comments Sex Female Smoking Status No Information Chief Complaint And Reason For Visit No Information Reason For Referral Reason For Referral No Information Plan Of Treatment Date Type Action Status Future Order: Lab Order Neisseri a Gonorrhoeae (GC), DNA, SDA, OTV ([id number]), Sent on: Sent Future Order: Lab Order CHLAMYDI A, RNA, TMA (Aptima) ([id number]), Sent on: Sent History Of Present Illness [...]
[2025-05-21] VITALS (109 sets, daily range): BP systolic 102–170; BP diastolic 71–104; PULSE 87–124; TEMP 36.8; O2SAT 91–100
--- OUTSIDE RECORDS SUMMARY | 2025-05-21 16:09 | XMS_ITS | Clinical Summary ---
Author Organization [facility] Address [address] [place] [address] Care Team Providers Care Batch Analyst Name Role Phone Kyleigh Hinton MD Unavailable [phone] Albina Lopez MD Primary Care Provider Source Comments [facility],non-owned Affiliates and Associated Physician Practices is amultiple site organization consisting of ambulatory clinics and hospital sitesin [place], [place], [place] and [place]. This disclosure is being madepursuant to the Care Everywhere program and may not contain all information available regarding this patient. 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 Not on file Not on file [employer] Not on file Not on file Not on file Last Filed Vital Signs Vital Sign Reading Time Taken Comments Blood Pressure 128/78 11/21/2024 9:19 AM YEAST STACKER Pulse 98 11/21/2024 9:19 AM YEAST STACKER Temperature 37.1 C (98.8 F) 11/21/2024 9:19 AM YEAST STACKER Respiratory Rate 22 04/25/2024 8:45 AM CDT Oxygen Saturation 100% 11/21/2024 9:19 AM YEAST STACKER Inhaled Oxygen Concentration - - Weight 68.6 kg (151 lb 3.2 oz) 11/21/2024 9:19 A M YEAST STACKER Height 177.8 cm (5' 10) 11/21/2024 9:19 AM YEAST STACKER Body Mass Index 21.69 11/21/2024 9:19 AM YEAST STACKER Plan of Treatment Upcoming Encounters Date Type Department Care Team (Late st Contact Info) Description 11/27/2025 9:20 AM CDT Office Visit [facility] - Family Medicine [address] [place] [phone] Kristen Cunha, CUTTER IN-PAN CLEANER [address] [facility] [address] [place] [phone] Health Maintenance Due Date Last Done Comments [...] with a HCV Nucleic Acid Amplification test ([id number]). Blood BLOOD SPECIMEN / Unknown 07/20/2021 1:36 PM CDT 07/20/2021 Narrative Resulting Agency Comment Lab Testing performed at: [facility] [place] [address] [facility] [phone] us Marisel Cash MD LAB - CHEMISTRY ORDERABLES Radha velez Result [facility] ACCOUNT BILL [address] [place] [address] from Last 3 Months or Most Recently Relevant to Health Maintenance Insurance [employer] Care Teams Batch Analyst Relationship Specialty Start Date End Date Albina Lopez MD [address] [place] [id number] PCP - General Internal Medicine 05/01/24 Kyleigh Hinton MD [address] [place], [place] [phone] Obstetrics and Gynecology 06/15/22
--- NOTE | 2025-05-21 16:40 | P.HP_ITS ---
H&P: HPI History of Present Illness Date/Time: 05/21/25 16:40 Chief Complaint: Hypertension and term Narrative: This is a 24 2 para 0 whose last menstrual period was 09/03/2024, EDC is 06/10/2025, confirmed by 12 week ultrasound presents at 37 weeks gestation secondary to elevated blood pressures. She has proven -induced hypertension. She has no changes in her pH labs. She has an early visit confirming dates as noted and she is negative for group B strep she does take Valtrex and Synthroid and has had no lesions and been taking the Valtrex preventive Little. She also has a history of an eating disorder. The states that she had a complete placenta previa which has resolved and she is rubella nonimmune Review of Systems Review of Systems: CONSTITUTIONAL: Denies fever, chills, or sweats. EYES: Denies visual changes, redness, or discharge. ENT: reports rhinorrhea, congestion, sore throat. Denies otalgia. CARDIOVASCULAR: Denies chest pain, palpitations, or edema. RESPIRATORY: Reports cough. Denies dyspnea. GASTROINTESTINAL: Denies abdominal pain, nausea, vomiting, or diarrhea. GENITOURINARY: Denies dysuria or hematuria. SKIN: Denies rash or itching. MUSCULOSKELETAL: Denies back pain, joint pain, or myalgia. NEUROLOGIC: Denies headache, numbness, or weakness. PSYCHIATRIC: Denies anxiety or depression. All other systems reviewed are negative, except as documented in HPI. [facility] Family History Family History Grandparent Lung cancer 23-polyvalent pneumococcal polysaccharide vaccine indication of diabetes in patient 6 to 64 years of age Grandparent Kidney failure Social History Social History Substance use: never Lack of Transportation: No Lack of Food: Never True Current Housing: I Have Housing Concerned About Future Housing: No Difficulty Paying Gas/Electric Bills: No Difficulty Paying for Meds: No Currently Unemployed: No Education: High School Diploma/GED Difficulty w/ Childcare or Family Care: No Spiritual care concerns: No Meds Home Medications and Allergies Home Medications ?Medication ?Instructions ?Recorded ?Confirmed ?Type levothyroxine 25 mcg tablet 25 mcg PO ONCE 05/14/25 History (Synthroid) vit no.95-ferrous 1 tablet PO DAILY 05/14/25 05/14/25 History fumarate 28 mg-folic acid 800 mcg tablet () vit D3-folic acid-vit B2-B6-B12 tablet PO 05/14/25 Hi story 2,000 unit-800 mcg-0.32 mg tablet Allergies Allergy/AdvReac Type Severity Reaction Status Date / Time Penicillins Allergy Unknown Unknown Unverified 05/05/23 13:08 amoxicillin (From Augmentin) AdvReac Hives Verified 05/14/25 12:31 clavulanic acid (From AdvReac Hives Verified 05/14/25 12:31 Augmentin) Vital Signs Vital Signs - 24 hr 05/21/25 16:26 05/21/25 16:27 05/21/25 16:31 Pulse Rate 113 H 117 H Blood Pressure 170/86 H 145/95 H Pulse Oximetry 97 98 05/21/25 16:36 Pulse Rate Blood Pressure Pulse Oximetry 99 Exam Const: General: cooperative, healthy appearing, comfortable and well groomed Nutritional Appearance: average body habitus Orientation/consciousness: oriented to person, oriented to place and oriented to time HENMT: Head: normal to inspection Resp: Effort & Inspection: normal respiratory effort Cardio: Rate: regular rate Rhythm: regular rhythm Heart sounds: S1 normal heart sound present and S2 normal heart sound present GI: Inspection: normal to inspection (Gravid soft uterus) : External Female Exam: normal external appearance Speculum Exam - Vagina: normal appearance of the vagina Speculum Exam - Cervix: normal appearance of the cervix (FHTs reassuring) Assessment and Plan Assessment and plan (1) Term : Code(s): Z34.90 - Encounter for supervision of normal , unspecified, unspecified trimester Status: Acute (2) Gestational hypertension: Code(s): O13.9 - Gestational [-induced] hypertension without significant proteinuria, unspecified trimester Status: Acute Plan Metabolic stone labor. Spontaneous vaginal delivery expected. She is an epidural candidate
--- NOTE | 2025-05-21 16:57 | WPDANESEPP ---
Anes - Eval Pre Procedure Procedure: labor epidural Date/Time: 05/21/25 16:57 Surgeon: viktoria Preop Diagnosis: pain during labor Pre Op Diagnosis: IOL Patient Data Age: 24 Gender: F Height: Weight: Last Vital Signs Pulse 116 H 05/21/25 16:51 BP 131/104 H 05/21/25 16:51 Pulse Ox 99 05/21/25 16:56 Allergies Allergy/AdvReac Type Severity Reaction Status Date / Time Penicillins Allergy Unknown Unknown Verified 05/21/25 16:57 amoxicillin (From Augmentin) AdvReac Hives Verified 05/21/25 16:57 clavulanic acid (From AdvReac Hives Verified 05/21/25 16:57 Augmentin) Home Medications ?Medication ?Instructions ?Recorded ?Confirmed ?Type levothyroxine 25 mcg tablet 25 mcg PO ONCE 05/14/25 05/14/25 History (Synthroid) vit no.95-ferrous 1 tablet PO DAILY 05/14/25 05/14/25 History fumarate 28 mg-folic acid 800 mcg tablet () vit D3-folic acid-vit B2-B6-B12 tablet PO 05/14/25 History 2,000 unit-800 mcg-0.32 mg tablet Laboratory Tests 05/21/25 05/21/25 16:42 16:44 WBC Pending RBC Pending Hgb Pending Hct Pending MCV Pending MCH Pending MCHC Pending RDW Pending Plt Count Pending MPV Pending Immature Gran % (Auto) Pending Neut % (Auto) Pending Lymph % (Auto) Pending [place] % (Auto) Pending Eos % (Auto) Pending Baso % (Auto) Pending Lymph # (Auto) Pending [place] # (Auto) Pending Eos # (Auto) Pending Baso # (Auto) Pending Abs Immat Gran (auto) Pending Absolute Neuts (auto) Pending Absolute Nucleated RBC Pending Nucleated RBC % Pending Sodium Pending Potassium Pending Chloride Pending Carbon Dioxide Pending Anion Gap Pending BUN Pending Creatinine Pending Estim Creat Clear Calc Pending Estimated GFR Pending Glucose Pending Uric Acid Pending Calcium Pending Total Bilirubin Pending AST Pending ALT Pending Alkaline Phosphatase Pending Total Protein Pending Albumin Pending Patient hx anesthesia problems: none Family hx anesthesia problems: none Results Review: All pre-operative results and documents have been reviewed as part of the pre-operative evaluation. [facility] Past Medical History Medical History (Updated 05/21/25 @ 16:58 by Mildred Jane CRNA) Arthritis Migraines, neuralgic Family History Family History Grandparent Lung cancer 23-polyvalent pneumococcal polysaccharide vaccine indication of diabetes in patient 6 to 64 years of age Grandparent Kidney failure Social History Social History Substance use: never Lack of Transportation: No Lack of Food: Never True Current Housing: I Have Housing Concerned About Future Housing: No Difficulty Paying Gas/Electric Bills: No Difficulty Paying for Meds: No Currently Unemployed: No Education: High School Diploma/GED Difficulty w/ Childcare or Family Care: No Spiritual care concerns: No Exam Day of Procedure 05/21/25 16:57
[2025-05-21 16:59] LABS: Hematocrit 32.0 % (37.0-47.0); Hemoglobin 10.7 g/dL (12.0-15.0); Immature Granulocyte Percent A 4.2 % (0-0.5); Lymphocytes Absolute Auto 2.94 K/mm3 (0.9-3.2); Mean Corpuscular HGB Conc 33.4 g/dl (32-36); Mean Corpuscular Hemoglobin 31.7 pg (26-34); Mean Corpuscular Volume 94.7 fl (80-100); Nucleated Red Blood Cells Absolute Auto 0.000 K/mm3 (0.0-0.012); Nucleated Red Blood Cells Perc 0.0 % (0.0-0.2); Platelet Count Result 299 k/mm3 (150-375); Red Blood Count 3.38 M/mm3 (4.2-5.4); White Blood Count 15.6 K/mm3 (4.5-10.0)
--- NOTE | 2025-05-21 17:01 | LDADM ---
This patient, Drea Vallejo, was admitted to Labor/Delivery/Recovery 107 on 05/21/25 at 16:04. Plans for labor, pain management and were discussed with patient. Patient/family oriented to hospital policies and general routines including ID bracelet, bed and alarms, visiting hours, pain management, procedures, bathroom and other care routines, personal items, smoking policy, room service/diet and guest tray routines, infant security routines, and visiting hours. Patient/Family are encouraged to report perceived risks to care and to ask questions if they do not understand what they are told or what they should do. See OBIX for further documentation.
[2025-05-21 17:08] LABS: Alanine Aminotransferase 15 U/L (6-35); Albumin Level 3.6 g/dL (3.5-5.1); Alkaline Phosphatase 147 U/L (38-126); Anion Gap 9 mmol/L (4-12); Aspartate Amino Transferase 30 U/L (14-36); Bilirubin,Total 0.4 mg/dL (0.2-1.3); Blood Urea Nitrogen 8 mg/dL (7-17); Calcium 9.3 mg/dL (8.4-10.2); Carbon Dioxide 20 mmol/L (22-30); Chloride 104 mmol/L (98-107); Estimated Glomerular Filt Rate > 60; Glucose 91 mg/dL (65-110); Potassium 3.8 mmol/L (3.4-5.0); Sodium 133 mmol/L (137-145); Total Protein 7.4 g/dL (6.3-8.2); Uric Acid 4.8 mg/dL (2.5-7.5)
[2025-05-21] MEDS: DINOPROSTONE 10 MG VAG INSERT VAGINAL (17:32)
[2025-05-21 17:34] LABS: Syphilis IgG/IgM Antibody Non-Reactive (Nonreactive)
[2025-05-21] MEDS: LACTATED RINGERS 1,000 ML 125 ML IV CONT (22:55)
[2025-05-21] MEDS: OXYTOCIN 30 UNITS/NS 500 ML 30 UNITS/500 ML BAG 6 UNITS IV CONT (22:56)
[2025-05-22] VITALS (137 sets, daily range): BP systolic 114–178; BP diastolic 54–124; PULSE 97–158; RESP 16–20; TEMP 36.6–37.1; O2SAT 95–100
[2025-05-22] MEDS: LACTATED RINGERS 1,000 ML 125 ML IV CONT ×2 (02:30→07:00)
--- NOTE | 2025-05-22 05:21 | PM.OBPNLAB ---
Pain Control Date/time seen: 05/22/25 05:21 Pain control: tolerating well and epidural Pelvic Exam Dilation (cm): 3 Effacement (%): 80 station: -2 Amniotic membrane status: Leaking Contractions Monitor mode: External
[2025-05-22] MEDS: ONDANSETRON INJ 4 MG/2 ML VIAL IV PUSH (05:34)
[2025-05-22] MEDS: FAMOTIDINE 20 MG/2 ML VIAL IV PUSH (05:58)
--- NOTE | 2025-05-22 08:06 | PM.OBPNLAB ---
Pain Control Date/time seen: 05/22/25 08:06 Pain control: tolerating well and epidural Pelvic Exam Dilation (cm): 8 Effacement (%): 90 station: 0 Amniotic membrane status: Leaking Comments: Intrauterine pressure catheter placed Contractions Monitor mode: External
--- NOTE | 2025-05-22 09:16 | P.PCNOB_ITS ---
OB - Vaginal Delivery Note Procedure Delivery date: 05/22/25 Events: Preeclampsia w/o severe features Induction method: Per Cervidil Protocol Delivery augmentation: Rupture of Membranes and Pitocin Delivery monitor: External FHT and Internal Uterine Route of delivery: Episiotomy description: None Laceration Description: None Specimen: No Quantitative Blood Loss (ml): 62 Anesthesia type: Epidural Disposition: Floor Complications: No immediate complications Narrative: The patient was admitted on the evening of 05 21 25 for induction of labor secondary to -induced hyper tension. She received Cervidil and spontaneously ruptured in the evening. Low-dose Pitocin run through the night and an IUPC placed after epidural at been placed she progressed on to an unremarkable 1st stage of labor to complete pushed delivered the head spontaneously in the MERYL position. Nuchal cord checked was noted to be loose x2 relieved around the occiput. Anterior posterior shoulder delivered spontaneously. Cord clamped x2 and cut passed off table given Apgars of 8 [id number]. Cord blood was drawn placenta delivered intact spontaneously. Twenty of Pitocin placed IV to help firm the uterus. No tears or lacerations were noted QBL was 62cc all sponge, needle, instrument counts correct. There were no immediate complications [place] Baby Date of : 05/22/25 Time of : 09:03 Gestational Age by Date: 37 Infant gender: Female presentation: vertex position: Right Occiput Anterior Placenta delivery description: Spontaneous Cord Vessel Description: 3 Vessels, Nuchal Cord (X2), Loose and Reduced score one minute: 8 score five minutes: 9
--- NOTE | 2025-05-22 09:19 | P.DS_ITS ---
DS: Admitting Diagnosis Discharge Date 05/23/2025 Admitting Diagnosis Peroneus induced hypertension/term DS: Discharge Diagnosis Discharge Diagnosis (1) Term : Code(s): Z34.90 - Encounter for supervision of normal , unspecified, unspecified trimester Status: Acute (2) induced hypertension: Code(s): O13.9 - Gestational [-induced] hypertension without significant proteinuria, unspecified trimester Status: Acute DS: Summary Hospital Course Reason for hospitalization: Patient was admitted on 05/21/2025 for induction of labor and delivered spontaneously on 05/22/2025. Hospital Course: The patient's hospital course unremarkable. She remained afebrile. She was up, voiding without difficulty, eating regular diet, ambulating, and generally without complaints Time Spent with Patient Time attestation: Total time spent providing and/or coordinating discharge services: Exam Const: General: cooperative, healthy appearing, comfortable and well groomed Nutritional Appearance: average body habitus Orientation/consciousness: oriented to person, oriented to place and oriented to time HENMT: Head: normal to inspection Resp: Effort & Inspection: normal respiratory effort Cardio: Rate: regular rate Rhythm: regular rhythm Heart sounds: S1 normal heart sound present and S2 normal heart sound present GI: Inspection: normal to inspection (Gravid soft uterus) : External Female Exam: normal external appearance Speculum Exam - Vagina: normal appearance of the vagina Speculum Exam - Cervix: normal appearance of the cervix (FHTs reassuring) DS: Data Data Completed and Pending Labs on day of discharge: Labs from last 24 hours 05/21/25 05/21/25 05/21/25 16:44 16:43 16:42 WBC 15.6 H RBC 3.38 L Hgb 10.7 L Hct 32.0 L MCV 94.7 MCH 31.7 MCHC 33.4 RDW 14.8 H Plt Count 299 MPV 9.3 Immature Gran % (Auto) 4.2 H Neut % (Auto) 67.4 Lymph % (Auto) 18.9 [place] % (Auto) 8.0 Eos % (Auto) 1.1 Baso % (Auto) 0.4 Lymph # (Auto) 2.94 [place] # (Auto) 1.2 H Eos # (Auto) 0.2 Baso # (Auto) 0.1 Abs Immat Gran (auto) 0.65 H Absolute Neuts (auto) 10.5 H Absolute Nucleated RBC 0.000 Nucleated RBC % 0.0 Sodium 133 L Potassium 3.8 Chloride 104 Carbon Dioxide 20 L Anion Gap 9 BUN 8 Creatinine 0.58 L Estim Creat Clear Calc Not Reportable Estimated GFR > 60 Glucose 91 Uric Acid 4.8 Calcium 9.3 Total Bilirubin 0.4 AST 30 ALT 15 Alkaline Phosphatase 147 H Total Protein 7.4 Albumin 3.6 Syphilis IgG/IgM Ab Non-reactive Blood Type B Positive Antibody Screen Negative Discharge Plan Discharge Attending physician on discharge: Domingo Zamarripa Discharging Clinician: Domingo Zamarripa Patient Disposition: Home Activity: may shower, no straining and pelvic rest Diet: heart healthy Wound Care Instructions: follow printed instructions Patient Instructions: Antibiotic Form Patient Language: [place] Stand Alone Forms: General Discharge Information Follow-up/Referrals: Kyleigh Hinton MD [Physician, [employer]] Discharge Medications: Continued levothyroxine [Synthroid] 25 mcg tablet 25 mcg PO ONCE vit D3-folic [id number]-[id number]-B12 2,000-800-0.32 unit-mcg-mg tablet PO WEEKLY PNV no.95-ferrous fumarate-FA [] 28 mg iron- 800 mcg tablet 1 tablet PO DAILY Date of admission: 05/21/25 16:04 Primary Care Provider: Lela,Kristen Knapp Admitting Provider: Domingo Zamarripa Attending physician on admission: Domingo Zamarripa Condition: Stable
[2025-05-22] MEDS: OXYTOCIN 30 UNITS/NS 500 ML 30 UNITS/500 ML BAG 125 UNITS IV CONT (09:41)
--- NOTE | 2025-05-22 12:35 | PC.NURSE ---
Introductions were made, then consulted with patient to assess needs related to . Discussed with mother her plans to feed her and the experience so far. Baby latched well after delivery and mom felt no pain with the latch. Mom is trying to arouse baby to feed now but she is very sleepy. Reviewed normal behavior and guidance provided on allowing baby more time to rest and then trying again. Resources provided for inpatient and outpatient services with the feeding sheet, mom/baby guide and name written on the communication board. Mother voiced understanding of information and will call if there is a request for assistance. Reported to the Primary RN.?
--- NOTE | 2025-05-22 15:46 | PC.NURSE ---
1515. Mom called out for support to confirm she had a good latch, she stated something doesnt feel quite right. Observed mother latching infant to the left breast in cross cradle position. We corrected infants positioning and alignment, and discussed positioning of the nipple in the infants mouth. Infant was able to maintain an appropriate latch. Mother declines nipple pain/discomfort throughout feeding. Encouraged mother to keep infant awake and nursing at the breast for as long as baby desires. Mother taught to listen for infant swallowing during feedings. Reviewed using the blue feeding sheet to record time and duration of feeding. Mother voiced understanding of the education shared, to call for assistance if the infant does not latch or if there is discomfort with . name/number on communication board. Reported to the Primary RN.?
[2025-05-22] MEDS: IBUPROFEN 600 MG TABLET PO (18:30)
[2025-05-22] MEDS: ACETAMINOPHEN 325 MG TABLET 650 MG PO (18:30)
[2025-05-22] MEDS: DIBUCAINE 1% OINTMENT 30 GM TUBE 1 APPLIC TOPICAL (18:43)
[2025-05-23] MEDS: ACETAMINOPHEN 325 MG TABLET 650 MG PO ×3 (00:15→16:14)
[2025-05-23] MEDS: IBUPROFEN 600 MG TABLET PO ×3 (00:15→16:14)
[2025-05-23 03:54] VITALS: BP 105/53; PULSE 93; RESP 18; TEMP 36.3; O2SAT 98
[2025-05-23 05:13] LABS: Hematocrit 26.7 % (37.0-47.0); Hemoglobin 8.5 g/dL (12.0-15.0)
--- NOTE | 2025-05-23 06:56 | P.PNOB_ITS ---
OB - PN: Subj Subjective Date/time seen: 05/23/25 06:56 Patient comments: no complaints and pain well controlled baby status: doing well OB - PN: Obj Data Labs 05/23/25 04:30 05/21/25 16:44 Labs: Laboratory Results - last 24 hr 05/23/25 04:30 Hgb 8.5 L Hct 26.7 L OB - PN A/P Assessment and Plan (1) Term : Code(s): Z34.90 - Encounter for supervision of normal , unspecified, unspecified trimester Status: Acute (2) induced hypertension: Code(s): O13.9 - Gestational [-induced] hypertension without significant proteinuria, unspecified trimester Status: Acute Plan routine care Time Spent With Patient Time: Total time spent is greater than 50% in coordination of care (as documented) at patient's floor/unit and/or counseling patient: Review of Systems 2 Review of Systems: CONSTITUTIONAL: Denies fever, chills, or sweats. EYES: Denies visual changes, redness, or discharge. ENT: reports rhinorrhea, congestion, sore throat. Denies otalgia. CARDIOVASCULAR: Denies chest pain, palpitations, or edema. RESPIRATORY: Reports cough. Denies dyspnea. GASTROINTESTINAL: Denies abdominal pain, nausea, vomiting, or diarrhea. GENITOURINARY: Denies dysuria or hematuria. SKIN: Denies rash or itching. MUSCULOSKELETAL: Denies back pain, joint pain, or myalgia. NEUROLOGIC: Denies headache, numbness, or weakness. PSYCHIATRIC: Denies anxiety or depression. All other systems reviewed are negative, except as documented in HPI. Exam 2 Const: General: cooperative, healthy appearing, comfortable and well groomed Nutritional Appearance: average body habitus Orientation/consciousness: o riented to person, oriented to place and oriented to time HENMT: Head: normal to inspection Resp: Effort & Inspection: normal respiratory effort Cardio: Rate: regular rate Rhythm: regular rhythm Heart sounds: S1 normal heart sound present and S2 normal heart sound present GI: Inspection: normal to inspection (Gravid soft uterus) : External Female Exam: normal external appearance Speculum Exam - Vagina: normal appearance of the vagina Speculum Exam - Cervix: normal appearance of the cervix (FHTs reassuring)
[2025-05-23 07:50] VITALS: BP 125/87; PULSE 101; RESP 20; TEMP 36.9
[2025-05-23] MEDS: DOCUSATE SODIUM 100 MG CAPSULE PO ×2 (10:00→16:14)
[2025-05-23] MEDS: MULTIVIT/MIN/PREN/FOL AC/IRON TABLET 1 TAB PO (10:00)
--- NOTE | 2025-05-23 10:30 | PC.NURSE ---
1030: Patient is tearful and states that she was given a nipple shield last night and that she does not like it. She feels that baby is able to latch without the shield. Discussed that the shield is a tool and that we don't have to use it if baby is able to latch to the breast. Patient would like assistance at the next feeding. She will call out when is back from getting 24 hour testing. 1040: Patient is attempting to wake baby by unswaddling. Her mother is present and very helpful. She has experience and is offering good support. Patient has been feeding in the cross cradle hold. She compresses the breast right behind the nipple when latching baby. She has large drops of colostrum that are used to entice baby. Baby latches off and on several times and has a few bursts of suckling. Mom has some soreness with latch. Her nipple is reddened with the skin intact. Her nipples are short and thick. She is rolling her nipple before latching to assist with eversion. Baby became sleepy and stopped rooting and opening, so we moved her into the football hold. Mom holds her breast in a 'sandwich' and is able to attempt latching several times when baby opened her mouth and rooted. Mom expressed more drops of colostrum and put those on baby's lips. Baby falls asleep again and is unable to be roused to latch any more. Mom is advised to feed again within 2 hours, or if baby shows feeding cues. She agrees and will call out for assistance as needed. Primary RN updated.
--- NOTE | 2025-05-23 14:20 | WPDANLDPN2 ---
Anes-Prog Note L&D Date/Time: 05/23/25 14:20 Comfortable throughout: labor and delivery Neuraxial method: epidural Epidural/Spinal procedure site: clean & non-tender Neuro status: Neuro function grossly intact. Cardiovascular status: normal Respiratory status: normal Airway patency: baseline Mental status: baseline Post-Op hydration status: normal Vital Signs: Last Vital Signs Temp 98.4 F 05/23/25 07:50 Pulse 101 H 05/23/25 07:50 Resp 20 05/23/25 07:50 BP 125/87 05/23/25 07:50 Pulse Ox 98 05/23/25 03:54 O2 Del Method Room Air 05/21/25 17:01 Pain score (VAS): 0 I/O: Intake & Output 05/22/25 05/23/25 05/23/25 23:59 07:59 15:59 Intake Total 101 Balance 101 Post-procedural complaints: none Patient feedback: Patient satisfied with anesthetic care.
--- NOTE | 2025-05-23 15:00 | PC.NURSE ---
Patient is pumping with her Mom Cozy pump. She feels that the size might be too large so she is going to measure her nipples to see if an insert is recommended. Syringes given so mom can feed baby small volumes of colostrum. She was able to latch baby independently and feed for 15 minutes, with 5 of those minutes being 'very good' per mom. Primary RN updated.
[2025-05-23 18:50] VITALS: BP 135/87; PULSE 99; RESP 18; TEMP 36.6; O2SAT 100
--- NOTE | 2025-05-24 06:24 | P.PNOB_ITS ---
OB - PN: Subj Subjective Date/time seen: 05/24/25 06:24 Patient comments: no complaints and pain well controlled baby status: doing well OB - PN: Obj Data Labs 05/23/25 04:30 05/21/25 16:44 OB - PN A/P Assessment and Plan (1) induced hypertension: Code(s): O13.9 - Gestational [-induced] hypertension without significant proteinuria, unspecified trimester Status: Acute (2) Term : Code(s): Z34.90 - Encounter for supervision of normal , unspecified, unspecified trimester Status: Acute Plan home Time Spent With Patient Time: Total time spent is greater than 50% in coordination of care (as documented) at patient's floor/unit and/or counseling patient: Review of Systems 2 Review of Systems: CONSTITUTIONAL: Denies fever, chills, or sweats. EYES: Denies visual changes, redness, or discharge. ENT: reports rhinorrhea, congestion, sore throat. Denies otalgia. CARDIOVASCULAR: Denies chest pain, palpitations, or edema. RESPIRATORY: Reports cough. Denies dyspnea. GASTROINTESTINAL: Denies abdominal pain, nausea, vomiting, or diarrhea. GENITOURINARY: Denies dysuria or hematuria. SKIN: Denies rash or itching. MUSCULOSKELETAL: Denies back pain, joint pain, or myalgia. NEUROLOGIC: Denies headache, numbness, or weakness. PSYCHIATRIC: Denies anxiety or depression. All other systems reviewed are negative, except as documented in HPI. Exam 2 Const: General: cooperative, healthy appearing, comfortable and well groomed Nutritional Appearance: average body habitus Orientation/consciousness: o riented to person, oriented to place and oriented to time HENMT: Head: normal to inspection Resp: Effort & Inspection: normal respiratory effort Cardio: Rate: regular rate Rhythm: regular rhythm Heart sounds: S1 normal heart sound present and S2 normal heart sound present GI: Inspection: normal to inspection (Gravid soft uterus) : External Female Exam: normal external appearance Speculum Exam - Vagina: normal appearance of the vagina Speculum Exam - Cervix: normal appearance of the cervix (FHTs reassuring)
[2025-05-24 07:00] VITALS: BP 128/81; PULSE 110; RESP 20; TEMP 36.7
[2025-05-24] MEDS: MULTIVIT/MIN/PREN/FOL AC/IRON TABLET 1 TAB PO (09:06)
[2025-05-24] MEDS: DOCUSATE SODIUM 100 MG CAPSULE PO (09:06)
[2025-05-24] MEDS: MEASLES,MUMPS,RUBELLA VACCINE 0.5 ML VIAL SUB-Q (09:07)
--- NOTE | 2025-05-24 10:40 | PC.NURSE ---
Patient viewed the discharge video Mother & Baby Care, The First Two Weeks. Patient was given the opportunity and encouraged to ask questions. Patient verbalized understanding of information shared and has been given the mother/baby guide for home reference.
[2025-05-26 12:53] VITALS: BP 140/83; PULSE 68; RESP 18; TEMP 37.1; O2SAT 100
== END 2025-05-24 10:45 | disposition home or self-care (01) | DRG 807 ==
LOC: ANHLDR 05-22 09:20 → ANHOB2 05-22 11:52
PROVIDERS: Admitting Provider Obstetrics & Gynecology; PCP Nurse Practitioner Family; Visit Provider Obstetrics & Gynecology
DX: O14.04 Mild to moderate pre-eclampsia, complicating childbirth (principal); Z37.0 Single live birth; O69.81X0 Labor and delivery complicated by cord around neck, without compression, not applicable or unspecified; Z3A.37 37 weeks gestation of pregnancy
CPT/HCPCS: 36415; 80053; 84550; 85014; 85018; 85025; 86593; 86850; 86900; 86901; 90710; A9270; J2405; J2590; J2795; J7120